=== PATIENT | female | born 1990 | race Caucasian/White ===

== ENCOUNTER 2020-06-09 09:06 | Emergency (ER) | payer SELFPAY ==
[2020-06-09] MEDS ORDERED: LORazepam 2 MG/ML VIAL ONE (10:43)
[2020-06-09 10:47] LABS: Protime INR 1.07
[2020-06-09 10:48] LABS: Basophils % 0.2 % (0-1.3); Hematocrit 38.8 % (36.0-45.0); Lymphocytes % 9.3 % (15.3-44.8); MPV 9.1 fL (7.6-11.3); RBC Red Blood Cell Count 4.25 M/uL (3.86-4.86)
--- NOTE | 2020-06-09 10:54 | RAD REPORT ---
EXAM DESCRIPTION: Myla Single View06/09/2020 10:21 am CLINICAL HISTORY: Chest pain COMPARISON: none FINDINGS: The lungs appear clear of acute infiltrate. The heart is normal size IMPRESSION: No acute abnormalities displayed
[2020-06-09 11:06] LABS: ALT/SGPT 63 U/L (12-78); AST/SGOT 30 U/L (15-37); Alkaline Phosphatase 87 U/L (45-117); BUN Blood Urea Nitrogen 11 mg/dL (7-18); Bicarbonate 29 mmol/L (21-32); Bilirubin Direct < 0.1 mg/dL (0-0.2); Bilirubin Total 0.3 mg/dL (0.2-1.0); Glucose Level 75 mg/dL (74-106); Magnesium 2.4 mg/dL (1.8-2.4); NT PRO-BNP 34 pg/mL (<125); Potassium 3.7 mmol/L (3.5-5.1); Sodium Level 142 mmol/L (136-145); Troponin (Emerg Dept Use Only) < 0.02 ng/mL (0.0-0.045)
--- NOTE | 2020-06-09 11:28 | EKG ---
Test Date: 2020-06-09 Test Time: 10:08:59 Ring Sewer: WHITNEY MEASUREMENT RESULTS: Intervals: Rate: 98 TX: 140 QRSD: 80 QT: 338 QTc: 431 [place]: P: 79 TX: 140 QRS: 92 T: 78 INTERPRETIVE STATEMENTS: Normal sinus rhythm Right atrial enlargement Rightward axis Pulmonary disease pattern Abnormal ECG No previous ECG available for comparison Electronically Signed On 06-09-20 11:27:13 NURSING CARE ATTENDANT by Christiano Patton
[2020-06-09 13:03] LABS: SARS-COV-2 RT PCR NEGATIVE (NEGATIVE)
--- NOTE | 2020-06-09 13:15 | ER ---
Nurse's Notes [facility] Name: Graciela Zuniga Age: 30 yrs Sex: Female : 1990 Arrival Date: 06/09/2020 Time: 09:08 Bed 25 Private MD: Diagnosis: Chest pain, unspecified Presentation: 06/09 09:24 Chief complaint: Patient states: "Chest pain, high pulse and shortness of breath for 4 ss days.". Coronavirus screen: Client denies travel out of the [place] in the last 14 days. Ebola Screen: Patient denies exposure to infectious person. Patient denies travel to an Ebola-affected area in the 21 days before illness onset. Initial Sepsis Screen: Does the patient meet any 2 criteria? No. Patient's initial sepsis screen is negative. Does the patient have a suspected source of infection? No. Patient's initial sepsis screen is negative. Risk Assessment: Do you want to hurt yourself or someone else? Patient reports no desire to harm self or others. Onset of symptoms was June 05, 2020. 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 - Social history:: Smoking status: Patient reports the use of cigarette tobacco products, denies chronic smoking, but will smoke occasionally. Screenin:55 Abuse screen: Denies threats or abuse. Nutritional screening: No deficits noted. ll1 Tuberculosis screening: No symptoms or risk factors identified. Fall Risk None identified. IV access (20 points). Total Turner Fall Scale indicates No Risk (0-24 pts). Assessment: 10:00 General: Appears in no apparent distress. Behavior is calm, cooperative, appropriate ll1 for age. Pain: Complains of pain in chest Pain does not radiate. Pain began 2-3 days ago. Is intermittent. Neuro: No deficits noted. Cardiovascular: Reports chest pain, shortness of breath, Heart tones S1 S2 Capillary refill < 3 seconds Clubbing of nail beds is absent JVD is absent Patient's skin is warm and dry. Rhythm is regular Chest pain is described as vague, diffuse, quality is heaviness, is located in anterior. Respiratory: Airway is patent Trachea midline Respiratory effort is even, unlabored, Respiratory pattern is regular, symmetrical, Denies cough, labored breathing. GI: No deficits noted. 11:00 Reassessment: No changes from previously documented assessment. Patient and/or family ll1 updated on plan of care and expected duration. Pain level reassessed. Patient is alert, oriented x 3, equal unlabored respirations, skin warm/dry/pink. 12:00 Reassessment: No changes from previously documented assessment. Patient and/or family ll1 updated on plan of care and expected duration. Pain level reassessed. 13:00 Reassessment: No changes from previously documented assessment. Patient and/or family ll1 updated on plan of care and expected duration. Pain level reassessed. Patient is alert, oriented x 3, equal unlabored respirations, skin warm/dry/pink. Patient states feeling better. 13:47 Reassessment: No changes from previously documented assessment. Patient and/or family ll1 updated on plan of care and expected duration. Pain level reassessed. Patient states feeling better. Vital Signs: 09:24 BP 134 / 86; Pulse 97; Resp 25; Temp 97.4; Pulse Ox 99% on R/A; Pain 5/10; ss 10:55 Resp 18; ll1 11:04 BP 105 / 67; Pulse 98; Resp 18; ll1 13:45 BP 98 / 84; Pulse 86; Resp 17; Pulse Ox 99% ; Pain 3/10; ll1 ED Course: 09:08 Patient arrived in ED. ds1 09:25 Triage completed. ss 09:26 Arm band placed on right wrist. ss 09:34 Elida Argueta FNP-C is PHCP. kb 09:34 Emanuel Sandres MD is Attending Physician. kb 10:05 Monica Calloway RN is Primary Nurse. ss 10:21 Chest Single View XRAY In Process Unspecified. EDMS 10:38 Initial lab(s) drawn, by me, sent to lab. Inserted saline lock: 20 gauge in left em1 antecubital area, using aseptic technique. Blood collected. 10:55 Patient has correct armband on for positive identification. Bed in low position. Call ll1 light in reach. Side rails up X 1. Pulse ox on. NIBP on. 10:56 No provider procedures requiring assistance completed. Patient maintains SpO2 ll1 saturation greater than 95% on room air. 13:47 IV discontinued, intact, bleeding controlled, No redness/swelling at site. Pressure ll1 dressing applied. Administered Medications: 10:45 Drug: Ativan 0.5 mg Route: IVP; Site: left antecubital; ll1 11:40 Follow up: Response: No adverse reaction; RASS: Alert and Calm (0) ll1 13:29 Drug: TORadol - Ketorolac 15 mg Route: IVP; Site: left antecubital; ll1 13:47 Follow up: Response: No adverse reaction; Pain is decreased; RASS: Alert and Calm (0) ll1 Outcome: 13:14 Discharge ordered by . kenneth 13:48 Patient left the ED. ll1 13:48 Discharged to home ambulatory. ll1 13:48 Condition: stable 13:48 Discharge instructions given to patient, Instructed on discharge instructions, follow up and referral plans. Demonstrated understanding of instructions, follow-up care. Signatures: Dispatcher [employer] EDElida Pressley, INVOICE MACHINE OPERATOR-C INVOICE MACHINE OPERATOR-Alaina Rosario Eric em1 Monica Calloway RN RN ss Lewis, Lynsay, RN RN 1
--- NOTE | 2020-06-09 13:15 | EDPHYS ---
Physician Documentation [facility] Name: Graciela Zuniga Age: 30 yrs Sex: Female : 1990 Arrival Date: 06/09/2020 Time: 09:08 Bed 25 Private MD: ED Physician Emanuel Sanders HPI: 06/09 10:43 This 30 yrs old Female presents to ER via Ambulatory with complaints of Chest Pain, kb Shortness Of Breath. 10:44 The patient or guardian reports chest pain that is located primarily in the chest kb diffusely. The pain does not radiate. Associated signs and symptoms: Pertinent positives: palpitations, shortness of breath. The chest pain is described as aching. Duration: The patient or guardian reports a single episode, that is still ongoing. Modifying factors: The symptoms are alleviated by nothing. the symptoms are aggravated by nothing. Severity of pain: At its worst the pain was moderate in the emergency department the pain is unchanged. The patient has not experienced similar symptoms in the past. The patient has not recently seen a physician. Pt reports she has had shortness of breath, chest pain and a fast heart rate for 4 days. Pt appears anxious. States she thinks she has anxiety, but has never been diagnosed. . 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 - Social history:: Smoking status: Patient reports the use of cigarette tobacco products, denies chronic smoking, but will smoke occasionally. ROS: 10:43 Constitutional: Negative for fever, chills, and weight loss, Abdomen/GI: Negative for kb abdominal pain, nausea, vomiting, diarrhea, and constipation, Back: Negative for injury and pain, MS/Extremity: Negative for injury and deformity, Skin: Negative for injury, rash, and discoloration, Neuro: Negative for headache, weakness, numbness, tingling, and seizure. 10:43 Cardiovascular: Positive for chest pain, palpitations, Negative for edema, orthopnea, paroxysmal nocturnal dyspnea. 10:43 Respiratory: Positive for shortness of breath. Exam: 10:15 ECG was reviewed by the Attending Physician. kdr 10:42 Head/Face: Normocephalic, atraumatic. Chest/axilla: Normal chest wall appearance and kb motion. Nontender with no deformity. No lesions are appreciated. Cardiovascular: Regular rate and rhythm with a normal S1 and S2. No gallops, murmurs, or rubs. Normal PMI, no JVD. No pulse deficits. Respiratory: Lungs have equal breath sounds bilaterally, clear to auscultation and percussion. No rales, rhonchi or wheezes noted. No increased work of breathing, no retractions or nasal flaring. Abdomen/GI: Soft, non-tender, with normal bowel sounds. No distension or tympany. No guarding or rebound. No evidence of tenderness throughout. Skin: Warm, dry with normal turgor. Normal color with no rashes, no lesions, and no evidence of cellulitis. MS/ Extremity: Pulses equal, no cyanosis. Neurovascular intact. Full, normal range of motion. Neuro: Awake and alert, GCS 15, oriented to person, place, time, and situation. Cranial nerves II-XII grossly intact. Motor strength 5/5 in all extremities. Sensory grossly intact. Cerebellar exam normal. Normal gait. 10:42 Constitutional: The patient appears alert, awake, anxious. Vital Signs: 09:24 BP 134 / 86; Pulse 97; Resp 25; Temp 97.4; Pulse Ox 99% on R/A; Pain 5/10; ss 10:55 Resp 18; ll1 11:04 BP 105 / 67; Pulse 98; Resp 18; ll1 13:45 BP 98 / 84; Pulse 86; Resp 17; Pulse Ox 99% ; Pain 3/10; ll1 MDM: 09:34 Patient medically screened. kb 10:42 Data reviewed: vital signs, nurses notes. Data interpreted: Pulse oximetry: on room air kb is 99 %. Interpretation: normal. 11:22 ED course: Pt reports the ativan worked a little, but she is still having shortness of kb breath. 13:14 Counseling: I had a detailed discussion with the patient and/or guardian regarding: the kb historical points, exam findings, and any diagnostic results supporting the discharge/admit diagnosis, lab results, radiology results, the need for outpatient follow up, a family practitioner, to return to the emergency department if symptoms worsen or persist or if there are any questions or concerns that arise at home. 06/09 09:57 Order name: Basic Metabolic Panel; Complete Time: 11:06 kb 06/09 09:57 Order name: CBC with Diff; Complete Time: 11:00 kb 06/09 09:57 Order name: LFT's; Complete Time: 11:06 kb 06/09 09:57 Order name: Magnesium; Complete Time: 11:06 kb 06/09 09:57 Order name: NT PRO-BNP; Complete Time: 11:06 kb 06/09 09:57 Order name: PT-INR; Complete Time: 10:53 kb 06/09 09:37 Order name: Chest Single View XRAY; Complete Time: 10:55 kb 06/09 09:57 Order name: Troponin (emerg Dept Use Only); Complete Time: 11:06 kb 06/09 09:57 Order name: EKG; Complete Time: 09:58 kb 06/09 13:03 Order name: COVID-19/FLU A+B; Complete Time: 13:08 EDMS 06/09 09:57 Order name: Cardiac monitoring; Complete Time: 10:15 kb 06/09 09:57 Order name: EKG - Nurse/Tech; Complete Time: 10:15 kb 06/09 09:57 Order name: IV Saline Lock; Complete Time: 10:38 kb 06/09 09:57 Order name: Labs collected and sent; Complete Time: 11:02 kb 06/09 09:57 Order name: O2 Per Protocol; Complete Time: 11:05 kb 06/09 09:57 Order name: O2 Sat Monitoring; Complete Time: 11:05 kb EC:15 Rate is 95 beats/min. Rhythm is regular, Sinus Rhythm with No ectopy. QRS Upper Tract is kdr Normal. Right axis deviation noted. IN interval is normal. QRS interval is normal. QT interval is normal. No Q waves. Clinical impression: NSR w/ Non-specific ST/T Changes. Administered Medications: 10:45 Drug: Ativan 0.5 mg Route: IVP; Site: left antecubital; ll1 11:40 Follow up: Response: No adverse reaction; RASS: Alert and Calm (0) ll1 13:29 Drug: TORadol - Ketorolac 15 mg Route: IVP; Site: left antecubital; ll1 13:47 Follow up: Response: No adverse reaction; Pain is decreased; RASS: Alert and Calm (0) ll1 Disposition: 06/10 07:28 Co-signature as Attending Physician, Emanuel Sanders MD I agree with the assessment and kdr plan of care. Disposition: 06/09/20 13:14 Discharged to Home. Impression: Chest pain, unspecified. - Condition is Stable. - Discharge Instructions: Nonspecific Chest Pain, [id number]. - Medication Reconciliation Form, Thank You Letter, Antibiotic Education, Prescription Opioid Use form. - Follow up: Emergency Department; When: As needed; Reason: Worsening of condition. Follow up: Private Physician; When: 2 - 3 days; Reason: Recheck today's complaints, Continuance of care, Re-evaluation by your physician. Signatures: Dispatcher [employer] EDMS Elida Argueta, SIGNAL ENGINEER-C SIGNAL ENGINEER-CkEmanuel De La Rosa MD MD kdr Monica Calloway RN RN ss Juan Gooden RN RN ll1 Corrections: (The following items were deleted from the chart) 06/09 11:58 11:11 Influenza Screen (A \T\ B)+BA.LAB.BRZ ordered. EDNE EDMS 11:58 11:11 CORONAVIRUS+MR.LAB.BRZ ordered. EDNE EDMS 13:48 13:14 06/09/2020 13:14 Discharged to Home. Impression: Chest pain, unspecified. ll1 Condition is Stable. Forms are Medication Reconciliation Form, Thank You Letter, Antibiotic Education, Prescription Opioid Use. Follow up: Emergency Department; When: As needed; Reason: Worsening of condition. Follow up: Private Physician; When: 2 - 3 days; Reason: Recheck today's complaints, Continuance of care, Re-evaluation by your physician. kb
[2020-06-09] MEDS ORDERED: KETOROLAC 30 MG/ML INJ ONE (13:37)
[2020-06-09 13:53] VITALS: TEMP 97.4; O2SAT 99
[2020-06-09 13:55] VITALS: BP 105/67
--- NOTE | 2020-06-11 06:13 | EKG ---
Test Date: 2020-06-09 Test Time: 10:10:13 Coin Machine Servicer Repairer: WHITNEY MEASUREMENT RESULTS: Intervals: Rate: 95 PA: 142 QRSD: 80 QT: 336 QTc: 422 [place]: P: 82 PA: 142 QRS: 94 T: 79 INTERPRETIVE STATEMENTS: Normal sinus rhythm Right atrial enlargement Rightward axis Pulmonary disease pattern Abnormal ECG Compared to ECG 06/09/2020 10:08:59 No significant changes Electronically Signed On 06-11-20 06:09:27 CREDIT CHARGE AUTHORIZER by Christiano Patton
== END 2020-06-09 13:48 | disposition home or self-care (01) ==
LOC: ER 09:06
DX: R07.9 Chest pain, unspecified (principal); R06.02 Shortness of breath; Z20.822 Contact with and (suspected) exposure to COVID-19; F17.210 Nicotine dependence, cigarettes, uncomplicated; J45.909 Unspecified asthma, uncomplicated
CPT/HCPCS: 0240U; 36415; 71045; 80048; 80076; 83735; 83880; 84484; 85025; 85610; 93005; 96374; 96375; 99284